=== PATIENT | male | born 1960 ===

== ENCOUNTER 2021-12-17 07:59 | Emergency (ER) | payer SELFPAY ==
[2021-12-17] MEDS: Morphine 2 MG/ML SYRINGE IVPUSH ONE (08:30)
[2021-12-17] MEDS ORDERED: fentaNYL 100 MCG/2 ML SDV IVPUSH PRN (08:43)
[2021-12-17 08:54] LABS: ESTIMATED GFR 44 mL/min (>60); TROPONIN I HIGH SENSITIVITY 11.3 pg/ml (<=60.4)
[2021-12-17] MEDS: Sodium Chloride 0.9% 50 ML SDV FLUSH SCH (09:13)
[2021-12-17] MEDS: Iodixanol 652 MG/ML 100 ML Bottle IV PRN (09:13)
[2021-12-17] MEDS: Sodium Chloride 0.9% 1,000 ML IV ONE (09:20)
[2021-12-17] MEDS: Enoxaparin 100 MG/1 ML Syringe SUBCUT ONE (10:37)
[2021-12-17] MEDS: Enoxaparin 100 MG/1 ML Syringe ONE (10:38)
[2021-12-17] MEDS: Midazolam 1 MG/ML 2 ML SDV IVPUSH ONE (10:38)
[2021-12-17] MEDS: cefTRIAXone 1 GM Vial IVPUSH SCH (10:57)
[2021-12-17] MEDS: Morphine 4 MG/ML VIAL IVPUSH ONE (11:06)
[2021-12-17] MEDS: Morphine 4 MG/ML VIAL ONE (11:06)
[2021-12-17] MEDS: cefTRIAXone 1 GM Vial ONE (11:07)
[2021-12-17] MEDS ORDERED: Amoxicillin/Clavulanate K 875-125 MG Tab ONE (11:30)
== END 2021-12-17 11:50 | disposition left against medical advice (07) ==
LOC: LB.ED 07:59
DX: K57.92 Diverticulitis of intestine, part unspecified, without perforation or abscess without bleeding (principal); K56.7 Ileus, unspecified; J98.9 Respiratory disorder, unspecified; I10 Essential (primary) hypertension; Z20.822 Contact with and (suspected) exposure to COVID-19
CPT/HCPCS: 36415; 71045; 71260; 74177; 80053; 82947; 83605; 83880; 84484; 85025; 85379; 85610; 87635; 93005; 93010; 96361; 96372; 96374; 96376; 99283; 99285; A9270; J0696; J1650; J2270; J7030; U0002